=== PATIENT | female | born 1940 | race Caucasian/White ===

== ENCOUNTER 2016-08-01 21:42 | Emergency (ER) | payer MEDICARE ==
[2016-08-01 22:29] LABS: URINE BILIRUBIN NEGATIVE (NEGATIVE); URINE BLOOD 2+ (NEGATIVE); URINE GLUCOSE (UA) NORMAL (NORMAL); URINE KETONE 1+ (NEGATIVE); URINE LEUKOCYTE ESTERASE 2+ (NEGATIVE); URINE NITRATE POSITIVE (NEGATIVE); URINE PROTEIN 1+ (NEGATIVE); UROBILINOGEN NORMAL mg/dL (<1.0)
[2016-08-01 22:29] LABS: BASO % 0.4 % (0.1-1.2); EOS % 0.1 % (0.7-5.8); GRAN % 70.6 % (34.0-71.1); HEMATOCRIT 40.2 % (34-45); HEMOGLOBIN 13.5 g/dL (11.2-15.7); LYMPH # 1.2 10_X3_uL (1.2-3.7); LYMPH % 16.7 % (19.3-51.7); MEAN CORPUSCULAR HEMOGLOBIN 29.1 pg (27.0-33.0); MEAN CORPUSCULAR HGB CONC 33.6 g/dL (32.0-36.0); MEAN CORPUSCULAR VOLUME 86.6 fL (79-95); MEAN PLATELET VOLUME 10.3 fl (7.5-11.5); MONO # 0.9 10_X3_uL (0.2-0.9); MONO % 12.2 % (4.7-12.5); PLATELET COUNT 131 x10_3/uL (182-369); RED BLOOD COUNT 4.64 x10_6/uL (3.9-5.2); RED CELL DISTRIBUTION WIDTH 14.9 % (11.7-14.4); WHITE BLOOD COUNT 7.1 x10_3/uL (4.0-10.0)
[2016-08-01 22:37] LABS: URINE BACTERIA 2+ (NONE SEEN); URINE RBC 0-5 /[HPF] (0-2)
[2016-08-01 22:41] LABS: ALKALINE PHOSPHATASE 36 U/L (50-136); ALT/SGPT 22 U/L (3.5-33.9); AST/SGOT 21 U/L (7.04-26.96); BILIRUBIN,TOTAL 0.47 mg/dL (0.0-1.0); BLOOD UREA NITROGEN 14 mg/dL (7-18); CALCIUM 8.7 mg/dL (8.7-10.7); CARBON DIOXIDE 26 mmol/L (21-32); CREATININE 0.7 mg/dL (0.6-1.3); GLUCOSE,RANDOM 173 mg/dL (70-99); POTASSIUM 4.1 mmol/L (3.5-5.1); SODIUM 134 mmol/L (136-145); TOTAL PROTEIN 6.5 gm/dL (6.4-8.2)
== END 2016-08-01 23:13 | disposition home or self-care (01) ==
LOC: ER 21:42
PROVIDERS: General Practice
DX: G93.89 Other specified disorders of brain (principal); N39.0 Urinary tract infection, site not specified; R31.9 Hematuria, unspecified; J10.1 Influenza due to other identified influenza virus with other respiratory manifestations; G31.9 Degenerative disease of nervous system, unspecified; R50.9 Fever, unspecified; J32.9 Chronic sinusitis, unspecified; R41.0 Disorientation, unspecified; I11.9 Hypertensive heart disease without heart failure; I25.10 Atherosclerotic heart disease of native coronary artery without angina pectoris; Z95.1 Presence of aortocoronary bypass graft; Z95.5 Presence of coronary angioplasty implant and graft; I25.2 Old myocardial infarction; E11.9 Type 2 diabetes mellitus without complications; I50.9 Heart failure, unspecified; Z88.8 Allergy status to other drugs, medicaments and biological substances; Z79.899 Other long term (current) drug therapy; Z79.84 Long term (current) use of oral hypoglycemic drugs; Z79.82 Long term (current) use of aspirin
CPT/HCPCS: 36415; 70450; 71010; 80053; 81001; 82962; 83605; 83880; 85025; 87040; 87086; 87186; 87400; 99284; 99285-25